=== PATIENT | female | born 1960 | race Caucasian/White ===

== ENCOUNTER 2024-07-25 14:32 | Emergency (ER) | payer SELFPAY ==
--- NOTE | ~2024-07-25 | CT_ITS ---
EXAMINATION: CT abdomen pelvis w con DATE: 07/25/2024 15:27 INDICATION: Obstipation, nausea and vomiting. TECHNIQUE: Computed tomography (CT) of the abdomen and pelvis was performed with 100 mL Omnipaque-350 intravenous contrast. Automated exposure control and iterative reconstruction technique were employe d. The dose-length product was 221.16 mGy-cm. COMPARISON: None FINDINGS: Mild discoid atelectasis at the lingula. Heart size is normal. No pericardial or pleural effusion. Th ere is edematous-appearing wall thickening in the distal esophagus suggestive of esophagitis which co uld be related to provided history of vomiting. Minimal focal hepatic steatosis at the ligamentum ter es. Gallbladder spleen, pancreas, bilateral adrenal glands and left kidney are normal. 8 mm right danika al cyst. There are a few scattered colonic diverticula without adjacent from trace stranding to sugge st osteomyelitis. Small bowel and appendix are normal. No bowel dilation to suggest obstruction. The decompressed bladder, uterus and bilateral adnexa are unremarkable. No free intraperitoneal gas or fl uid. No pathologically enlarged abdominal or pelvic lymphadenopathy. Mild lumbar levocurvature with m oderate lumbar spondylosis chronic appearing T9 compression fracture with one third anterior vertebra l body height loss. IMPRESSION: 1. Edematous-appearing wall thickening the distal esophagus suggestive of esophagitis which may be re lated to reported history of vomiting. 2. No evident bowel obstruction or other acute intra-abdominal/pelvic process. Reviewed, dictated and finalized at location A. IMPRESSION: 1. Edematous-appearing wall thickening the distal esophagus suggestive of esoph agitis which may be related to reported history of vomiting. 2. No evident bowel obstruction or other acute intra-abdominal/pelvic process.
[2024-07-25 14:40] VITALS: BP 108/76; PULSE 116; RESP 16; TEMP 36.6; O2SAT 98
--- NOTE | 2024-07-25 14:55 | ED.GENADULT ---
HPI - General Adult General Chief complaint: Unspecified <Niko Callahan PA-C - Last Filed: 07/25/24 14:59> Stated complaint: Constipation, vomiting-poss ASM <Niko Callahan PA-C - Last Filed: 07/25/24 14:59> Time Seen by Provider: 07/25/24 17:10 <Niko Callahan PA-C - Last Filed: 07/25/24 14:59> Focused HPI: This is a 63-year-old female with PMH of CVA who presents to the ED for chief complaint of constipation x1 week. States her last regular bowel movement was 10 days ago on 07/15/2024. Feels that she is not passing gas. States she has been unable to tolerate food or liquids over the past day. Denies urinary symptoms. Endorses abdominal surgical history of . GENERAL: Well-appearing, well-nourished, and in no acute distress. HEAD: Normocephalic, atraumatic. CHEST: Clear to auscultation. No respiratory distress. HEART: Regular rate and rhythm. ABD: Soft, grossly nontender. NEURO: Alert and oriented x3. Patient screened in triage and initial orders placed. Additional care and disposition to be based upon diagnostic testing and treatment. <Niko Callahan PA-C - Last Filed: 07/25/24 14:59> Focused HPI: This is a 63-year-old female who presents to the ED for chief complaint of constipation x1 week. States her last regular bowel movement was 10 days ago on 07/15/2024. Feels that she is not passing gas. States she has been unable to tolerate food or liquids over the past day. Denies urinary symptoms. Endorses abdominal surgical history of . GENERAL: Well-appearing, well-nourished, and in no acute distress. HEAD: Normocephalic, atraumatic. CHEST: Clear to auscultation. No respiratory distress. HEART: Regular rate and rhythm. ABD: Soft, grossly nontender. NEURO: Alert and oriented x3. Patient screened in triage and initial orders placed. Additional care and disposition to be based upon diagnostic testing and treatment. <Jasmin Saldaña PA-C - Last Filed: 07/25/24 21:28> Source: patient <Niko Callahan PA-C - Last Filed: 07/25/24 14:59> Mode of arrival: ambulatory <Niko Callahan PA-C - Last Filed: 07/25/24 14:59> Limitations: no limitations <Niko Callahan PA-C - Last Filed: 07/25/24 14:59> Related Data Allergies/adverse reactions: Allergies Allergy/AdvReac Type Severity Reaction Status Date / Time celery Allergy Mild Rash Verified 07/25/24 14:35 CARROTS Allergy Mild Rash Uncoded 07/25/24 14:35 <Niko Callahan PA-C - Last Filed: 07/25/24 14:59> Review of Systems Review of Systems: CONSTITUTIONAL: Denies fever GASTROINTESTINAL: Reports abdominal pain, nausea, vomiting <Jasmin Saldaña PA-C - Last Filed: 07/25/24 21:28> All systems reviewed & are unremarkable except as noted in HPI and below <Jasmin Saldaña PA-C - Last Filed: 07/25/24 21:28> PMFSH Social History Social History: Social History (Updated 07/25/24 @ 17:57 by Jasmin Saldaña PA-C) Substance use: never <Niko Callahan PA-C - Last Filed: 07/25/24 14:59> Exam Narrative: GENERAL: Well-appearing, well-nourished, and in no acute distress. HEAD: Normocephalic, atraumatic. EYES: EOMI. CHEST: Clear to auscultation. No respiratory distress. No wheezes rales or rhonchi HEART: Regular rate and rhythm. No murmur heard. Normal peripheral pulses. ABDOMEN: Soft, nontender, nondistended, normal active bowel sounds. EXTREMITIES: Normal range of motion. No edema. SKIN: Warm, dry, no rash. NEURO: No focal deficits. Alert and oriented x3. PSYCH: Normal mood and affect <Jasmin Saldaña PA-C - Last Filed: 07/25/24 21:28> Course Course Emergency Course: patient updated on her workup. Tolerating PO challenge. Agrees with plan of care <Jasmin Saldaña PA-C - Last Filed: 07/25/24 21:28> Vital Signs Vital signs: Vital Signs Temperature 97.9 F 07/25/24 14:40 Pulse Rate 116 H 07/25/24 14:40 Respiratory Rate 16 07/25/24 14:40 Blood Pressure 108/76 07/25/24 14:40 Pulse Oximetry 98 07/25/24 14:40 Temperature 97.9 F 07/25/24 14:40 Pulse Rate 99 07/25/24 19:52 Respiratory Rate 18 07/25/24 19:52 Blood Pressure 160/92 H 07/25/24 19:52 Pulse Oximetry 100 07/25/24 19:52 <Niko Callahan PA-C - Last Filed: 07/25/24 14:59> Vital Signs Temperature 97.9 F 07/25/24 14:40 Pulse Rate 116 H 07/25/24 14:40 Respiratory Rate 16 07/25/24 14:40 Blood Pressure 108/76 07/25/24 14:40 Pulse Oximetry 98 07/25/24 14:40 Temperature 97.9 F 07/25/24 14:40 Pulse Rate 99 07/25/24 19:52 Respiratory Rate 18 07/25/24 19:52 Blood Pressure 160/92 H 07/25/24 19:52 Pulse Oximetry 100 07/25/24 19:52 <Jasmin Saldaña PA-C - Last Filed: 07/25/24 21:28> Medical Decision Making MDM Narrative Medical decision making narrative: Patient presents to the emergency department for abdominal pain, nausea and vomiting. She is afebrile and nontoxic appearing. Tachycardic upon arrival, this normalized with IV fluids. Cbc without leukocytosis. Metabolic panel with evidence of dehydration. Patient hydrated with IV fluids with improvement. Urine without evidence of infection. CT abdomen pelvis shows esophagitis, otherwise no acute findings. Patient updated on her workup. Tolerating p.o. challenge. Agrees with plan of care. She is to follow up primary provider. She was given warnings to return to the ER <Jasmin Saldaña PA-C - Last Filed: 07/25/24 21:28> Vital Signs Vital Signs: Vital Signs Temperature 97.9 F 07/25/24 14:40 Pulse Rate 116 H 07/25/24 14:40 Respiratory Rate 16 07/25/24 14:40 Blood Pressure 108/76 07/25/24 14:40 Pulse Oximetry 98 07/25/24 14:40 Temperature 97.9 F 07/25/24 14:40 Pulse Rate 99 07/25/24 19:52 Respiratory Rate 18 07/25/24 19:52 Blood Pressure 160/92 H 07/25/24 19:52 Pulse Oximetry 100 07/25/24 19:52 <Niko Callahan PA-C - Last Filed: 07/25/24 14:59> Vital Signs Temperature 97.9 F 07/25/24 14:40 Pulse Rate 116 H 07/25/24 14:40 Respiratory Rate 16 07/25/24 14:40 Blood Pressure 108/76 07/25/24 14:40 Pulse Oximetry 98 07/25/24 14:40 Temperature 97.9 F 07/25/24 14:40 Pulse Rate 99 07/25/24 19:52 Respiratory Rate 18 07/25/24 19:52 Blood Pressure 160/92 H 07/25/24 19:52 Pulse Oximetry 100 07/25/24 19:52 <Jasmin Saldaña PA-C - Last Filed: 07/25/24 21:28> Lab Data Lab results reviewed: Yes I reviewed the patient's lab results. <Jasmin Saldaña PA-C - Last Filed: 07/25/24 21:28> Result diagrams: 07/25/24 14:56 07/25/24 19:56 <JOHN Tran Last Filed: 07/25/24 14:59> Labs: Lab Results 07/25/24 07/25/24 07/25/24 Range/Units 14:56 18:39 19:56 WBC 9.9 (4.5-10.0) K/mm3 RBC 4.36 (4.2-5.4) M/mm3 Hgb 13.4 (12.0-15.0) g/dL Hct 38.8 (37.0-47.0) % MCV 89.0 (80-100) fl MCH 30.7 (26-34) pg MCHC 34.5 (32-36) g/dl RDW 11.9 (11.5-14.5) % Plt Count 293 (150-375) k/mm3 MPV 8.4 (7.4-10.4) fl Immature Gran % (Auto) 0.2 (0-0.5) % Neut % (Auto) 79.4 H (45.5-73.1) % Lymph % (Auto) 14.4 L (18.3-44.2) % [place] % (Auto) 4.8 (2.6-8.5) % Eos % (Auto) 0.6 (0-4.4) % Baso % (Auto) 0.6 (0.2-1.2) % Lymph # (Auto) 1.42 (0.9-3.2) K/mm3 [place] # (Auto) 0.5 (0.1-0.6) K/mm3 Eos # (Auto) 0.1 (0-0.3) K/mm3 Baso # (Auto) 0.1 (0.0-0.1) K/mm3 Abs Immat Gran (auto) 0.02 (0.00-0.031) K/mm3 Absolute Neuts (auto) 7.8 H (1.3-6.7) K/mm3 Absolute Nucleated RBC 0.000 (0.0-0.012) K/mm3 Nucleated RBC % 0.0 (0.0-0.2) % Sodium 139 140 (137-145) mmol/L Potassium 4.2 4.8 (3.4-5.0) mmol/L Chloride 100 106 (98-107) mmol/L Carbon Dioxide 21 L 20 L (22-30) mmol/L Anion Gap 18 H 14 H (4-12) mmol/L BUN 25 H 21 H (7-17) mg/dL Creatinine 1.38 H 1.15 H (0.7-1.0) mg/dL Estim Creat Clear Calc Not Reportable Not Reportable Estimated GFR 39 L 48 L (59 - ) Glucose 143 H 89 (65-110) mg/dL Lactic Acid 1.9 (0.7-2.0) mmol/L Calcium 9.8 8.5 (8.4-10.2) mg/dL Total Bilirubin 0.8 (0.2-1.3) mg/dL AST 24 (14-36) U/L ALT 22 (6-35) U/L Alkaline Phosphatase 72 (38-126) U/L Total Protein 9.0 H (6.3-8.2) g/dL Albumin 5.0 (3.5-5.1) g/dL Lipase 53 (23-300) U/L Urine Color Yellow (Yellow) Urine Appearance Clear (Clear) Urine pH 5.5 (5.0-9.0) Ur Specific [place] > 1.045 H (1.001-1.035) Urine Protein Trace (Negative) mg/dL Urine Glucose (UA) Negative (Negative) mg/dL Urine Ketones 1+ H (Negative) mg/dL Ur Blood (Man) Negative (Negative) Urine Nitrate Negative (Negative) Urine Bilirubin Negative (Negative) Urine Urobilinogen 0.2 (<2.0) mg/dL Leukocyte Esterase Rfl Negative (Negative) ELAYNE/UL Urine RBC 0-2 (0-2) /hpf Urine WBC 0-5 (0-3) /hpf Ur Squamous Epith Cells None seen (Few) /hpf Urine Bacteria None seen /hpf Urine Casts 3-5 <Niko Callahan PA-C - Last Filed: 07/25/24 14:59> Lab Results 07/25/24 07/25/24 07/25/24 Range/Units 14:56 18:39 19:56 WBC 9.9 (4.5-10.0) K/mm3 RBC 4.36 (4.2-5.4) M/mm3 Hgb 13.4 (12.0-15.0) g/dL Hct 38.8 (37.0-47.0) % MCV 89.0 (80-100) fl MCH 30.7 (26-34) pg MCHC 34.5 (32-36) g/dl RDW 11.9 (11.5-14.5) % Plt Count 293 (150-375) k/mm3 MPV 8.4 (7.4-10.4) fl Immature Gran % (Auto) 0.2 (0-0.5) % Neut % (Auto) 79.4 H (45.5-73.1) % Lymph % (Auto) 14.4 L (18.3-44.2) % [place] % (Auto) 4.8 (2.6-8.5) % Eos % (Auto) 0.6 (0-4.4) % Baso % (Auto) 0.6 (0.2-1.2) % Lymph # (Auto) 1.42 (0.9-3.2) K/mm3 [place] # (Auto) 0.5 (0.1-0.6) K/mm3 Eos # (Auto) 0.1 (0-0.3) K/mm3 Baso # (Auto) 0.1 (0.0-0.1) K/mm3 Abs Immat Gran (auto) 0.02 (0.00-0.031) K/mm3 Absolute Neuts (auto) 7.8 H (1.3-6.7) K/mm3 Absolute Nucleated RBC 0.000 (0.0-0.012) K/mm3 Nucleated RBC % 0.0 (0.0-0.2) % Sodium 139 140 (137-145) mmol/L Potassium 4.2 4.8 (3.4-5.0) mmol/L Chloride 100 106 (98-107) mmol/L Carbon Dioxide 21 L 20 L (22-30) mmol/L Anion Gap 18 H 14 H (4-12) mmol/L BUN 25 H 21 H (7-17) mg/dL Creatinine 1.38 H 1.15 H (0.7-1.0) mg/dL Estim Creat Clear Calc Not Reportable Not Reportable Estimated GFR 39 L 48 L (59 - ) Glucose 143 H 89 (65-110) mg/dL Lactic Acid 1.9 (0.7-2.0) mmol/L Calcium 9.8 8.5 (8.4-10.2) mg/dL Total Bilirubin 0.8 (0.2-1.3) mg/dL AST 24 (14-36) U/L ALT 22 (6-35) U/L Alkaline Phosphatase 72 (38-126) U/L Total Protein 9.0 H (6.3-8.2) g/dL Albumin 5.0 (3.5-5.1) g/dL Lipase 53 (23-300) U/L Urine Color Yellow (Yellow) Urine Appearance Clear (Clear) Urine pH 5.5 (5.0-9.0) Ur Specific [place] > 1.045 H (1.001-1.035) Urine Protein Trace (Negative) mg/dL Urine Glucose (UA) Negative (Negative) mg/dL Urine Ketones 1+ H (Negative) mg/dL Ur Blood (Man) Negative (Negative) Urine Nitrate Negative (Negative) Urine Bilirubin Negative (Negative) Urine Urobilinogen 0.2 (<2.0) mg/dL Leukocyte Esterase Rfl Negative (Negative) ELAYNE/UL Urine RBC 0-2 (0-2) /hpf Urine WBC 0-5 (0-3) /hpf Ur Squamous Epith Cells None seen (Few) /hpf Urine Bacteria None seen /hpf Urine Casts 3-5 <JOHN Tesfaye Last Filed: 07/25/24 21:28> Imaging Data Radiologist's impression: ITS Impressions Abdomen/Pelvis CT 07/25/24 15:37 IMPRESSION: 1. Edematous-appearing wall thickening the distal esophagus suggestive of esophagitis which may be related to reported history of vomiting. 2. No evident bowel obstruction or other acute intra-abdominal/pelvic process. <Jasmin Saldaña PA-C - Last Filed: 07/25/24 21:28> Critical Care Time Critical Care Time Critical Care Time: No <JOHN Tesfaye Last Filed: 07/25/24 21:28> Discharge Plan Discharge Clinical Impression: Dehydration, Esophagitis <JOHN Tran Last Filed: 07/25/24 14:59> Patient Disposition: Home, Self-Care <JOHN Tran Last Filed: 07/25/24 14:59> Condition: Improved <JOHN Tran Last Filed: 07/25/24 14:59> Instructions: Dehydration (ED), Abdominal Pain (ED), Esophagitis (ED) <JOHN Tran Last Filed: 07/25/24 14:59> Additional Instructions: Return to the ER if you experience fever, abdominal pain with nausea and vomiting, you are unable to keep down liquids or solids, blood in the stool, pain or burning with urination, blood in the urine or any other symptoms that are concerning to you Small, frequent meals. [place] diet. Remain well hydrated. Ondansetron as needed for nausea. Take protonix as prescribed Follow up with primary care doctor <JOHN Tran Last Filed: 07/25/24 14:59> Patient Language: Beninese <Niko Callahan PA-C - Last Filed: 07/25/24 14:59> Prescriptions: New ondansetron 4 mg tablet,disintegrating 4 mg PO Q8H PRN (Reason: nausea and vomiting) Qty: 10 0RF pantoprazole 40 mg tablet,delayed release (DR/EC) 40 mg PO HS 28 Days Qty: 28 0RF <Niko Callahan PA-C - Last Filed: 07/25/24 14:59> Follow-up/Referrals: Raghav Hernandez DO [Physician] - PHYSICIAN,[facility] [Primary Care Provider] - <Niko Callahan PA-C - Last Filed: 07/25/24 14:59>
[2024-07-25 15:08] LABS: Basophils Absolute Auto 0.1 K/mm3 (0.0-0.1); Basophils Percent Auto 0.6 % (0.2-1.2); Eosinophils Absolute Auto 0.1 K/mm3 (0-0.3); Eosinophils Percent Auto 0.6 % (0-4.4); Hematocrit 38.8 % (37.0-47.0); Hemoglobin 13.4 g/dL (12.0-15.0); Immature Granulocyte Absolute 0.02 K/mm3 (0.00-0.031); Immature Granulocyte Percent A 0.2 % (0-0.5); Lymphocytes Absolute Auto 1.42 K/mm3 (0.9-3.2); Lymphocytes Percent Auto 14.4 % (18.3-44.2); Mean Corpuscular HGB Conc 34.5 g/dl (32-36); Mean Corpuscular Hemoglobin 30.7 pg (26-34); Mean Platelet Volume 8.4 fl (7.4-10.4); Monocytes Absolute Auto 0.5 K/mm3 (0.1-0.6); Monocytes Percent Auto 4.8 % (2.6-8.5); Neutrophils Absolute Auto 7.8 K/mm3 (1.3-6.7); Neutrophils Percent Auto 79.4 % (45.5-73.1); Platelet Count Result 293 k/mm3 (150-375); Red Blood Count 4.36 M/mm3 (4.2-5.4); Red Cell Distribution Width 11.9 % (11.5-14.5); White Blood Count 9.9 K/mm3 (4.5-10.0)
[2024-07-25 15:13] LABS: Lactic Acid Reflex 1.9 mmol/L (0.7-2.0)
[2024-07-25 15:14] LABS: Alanine Aminotransferase 22 U/L (6-35); Alkaline Phosphatase 72 U/L (38-126); Anion Gap 18 mmol/L (4-12); Aspartate Amino Transferase 24 U/L (14-36); Bilirubin,Total 0.8 mg/dL (0.2-1.3); Blood Urea Nitrogen 25 mg/dL (7-17); Calcium 9.8 mg/dL (8.4-10.2); Carbon Dioxide 21 mmol/L (22-30); Chloride 100 mmol/L (98-107); Estimated Glomerular Filt Rate 39; Glucose 143 mg/dL (65-110); Lipase 53 U/L (23-300); Potassium 4.2 mmol/L (3.4-5.0); Sodium 139 mmol/L (137-145)
[2024-07-25 16:28] VITALS: BP 142/93; PULSE 99; RESP 16; O2SAT 100
[2024-07-25 17:00] VITALS: BP 160/76; PULSE 91; RESP 18; O2SAT 99
[2024-07-25 17:15] VITALS: BP 151/81; PULSE 94; RESP 16; O2SAT 100
[2024-07-25] MEDS: SODIUM CHLORIDE 0.9% IV 1,000 ML 999 ML IV CONT ×2 (17:37→18:07)
[2024-07-25] MEDS: ONDANSETRON INJ 4 MG/2 ML VIAL IV PUSH (17:38)
[2024-07-25] MEDS: PANTOPRAZOLE SODIUM IV 40 MG VIAL IV PUSH (17:39)
[2024-07-25 18:00] VITALS: BP 133/74; PULSE 79; RESP 16; O2SAT 100
--- NOTE | 2024-07-25 19:24 | PC.NURSE ---
Assumed care of patient after receiving report from TAYLER Peacock. @ 0717
[2024-07-25 19:26] LABS: Add Urine Microscopic? YES; Appearance Urine Clear (Clear); Bacteria Urine None Seen /hpf; Bilirubin Urine Negative (Negative); Blood Urine Negative (Negative); Color Urine Yellow (Yellow); Glucose Urine UA Negative (Negative); Ketones Urine 1+ mg/dL (Negative); Leukocyte Esterase Ur Negative LEU/UL (Negative); Nitrate Urine Negative (Negative); Protein Urine Trace mg/dL (Negative); RBC Urine 0-2 /hpf (0-2); Specific Grav Ur > 1.045 (1.001-1.035); Squamous Epithelial Cell Urine None Seen /hpf (Few); Urobilinogen Urine 0.2 mg/dL (<2.0); WBC Urine 0-5 /hpf (0-3); pH Urine 5.5 (5.0-9.0)
[2024-07-25 19:52] VITALS: BP 160/92; PULSE 99; RESP 18; O2SAT 100
[2024-07-25 20:11] LABS: Anion Gap 14 mmol/L (4-12); Blood Urea Nitrogen 21 mg/dL (7-17); Calcium 8.5 mg/dL (8.4-10.2); Carbon Dioxide 20 mmol/L (22-30); Chloride 106 mmol/L (98-107); Estimated Glomerular Filt Rate 48; Glucose 89 mg/dL (65-110); Potassium 4.8 mmol/L (3.4-5.0); Sodium 140 mmol/L (137-145)
== END 2024-07-25 21:45 | disposition home or self-care (01) ==
PROVIDERS: Physician Assistant; Emergency Provider Physician Assistant
DX: K20.90 Esophagitis, unspecified without bleeding (principal); E86.0 Dehydration; Z86.73 Personal history of transient ischemic attack (TIA), and cerebral infarction without residual deficits
CPT/HCPCS: 36415; 74177; 80048; 80053; 81001; 83605; 83690; 85025; 96361; 96374; 96375; 99284; J2405; J2470; J7030; Q9967